=== PATIENT | female | born 1990 | race African-American/Black ===

== ENCOUNTER 2022-02-02 11:40 | Emergency (ER) | payer OTHER ==
[2022-02-02 12:12] VITALS: BP 114/69; PULSE 98; RESP 18; TEMP 97.9; BMI 29.9
== END 2022-02-02 13:32 | disposition home or self-care (01) ==
LOC: JER 11:40
DX: H10.89 Other conjunctivitis (principal); J02.9 Acute pharyngitis, unspecified; R05.1 Acute cough
CPT/HCPCS: 0241U-QW; 99283-25